=== PATIENT | male | born 2000 | race Caucasian/White ===

== ENCOUNTER → 2022-10-08 | Outpatient (CLI) | payer BC ==
--- NOTE | 2022-10-08 09:08 | Diagnostic Imaging Report ---
PROCEDURE: CT abdomen and pelvis with contrast. TECHNIQUE: Multiple contiguous axial images were obtained through the abdomen and pelvis after administration of intravenous contrast. Auto Exposure Controls were utilized during the CT exam to meet ALARA standards for radiation dose reduction. All CT scans use one or more of the following dose optimizing techniques: automated exposure control, MA and/or KvP adjustment based on patient size and exam type or iterative reconstruction. INDICATION: Abdominal pain with nausea, vomiting and diarrhea. No prior studies are available for comparison. FINDINGS: Lung bases are clear. Liver is unremarkable. Gallbladder appears to be thick-walled with possible pericholecystic fluid. There is no biliary ductal dilatation. Pancreas and spleen are unremarkable. No adrenal mass is identified. Kidneys are unremarkable. Aorta is nonaneurysmal. Bowel loops are nonobstructed. The appendix is unremarkable. No free fluid or fluid collection is seen. The bladder and prostate are unremarkable. IMPRESSION: Gallbladder appears to be thick-walled and there is some questionable pericholecystic fluid. Cholecystitis cannot be entirely excluded and gallbladder ultrasound would be useful for further evaluation. Dictated by: Dictated on workstation # [id number]
== END ==
LOC: RAD 07:45
PROVIDERS: ATTEND Physician Assistant
DX: K82.8 Other specified diseases of gallbladder (principal)
CPT/HCPCS: 74177

== ENCOUNTER 2022-10-22 05:36 | Outpatient (CLI) | payer BC ==
[~2022-10-22] VITALS: Ht 180.3 cm; Wt 88.2 kg
[2022-10-22] MEDS ORDERED: AMPH20TA2 PO (15:51)
[2022-10-24] MEDS ORDERED: ACHD5005 PO (10:52)
== END 2022-10-22 16:11 | disposition home or self-care (01) ==
LOC: PREOP 05:36
PROVIDERS: ATTEND Surgery
DX: Z01.818 Encounter for other preprocedural examination (principal)

== ENCOUNTER 2022-10-24 08:36 | Day surgery (SDC) | payer BC ==
[2022-10-24] VITALS (11 sets, daily range): BP systolic 102–137; BP diastolic 60–86
[~2022-10-24] VITALS: Ht 180.3 cm; Wt 88.2 kg
[~2022-10-24 08:36] MED LIST: AMPH20TA2 PO
[2022-10-24] MEDS ORDERED: LIDOCAINE/EPI 1%-1:100,000 (XYLOCAINE) 20ML ONE (08:43)
[2022-10-24] MEDS ORDERED: GLYCOPYRROLATE 0.2 MG/ML (ROBINUL) 2 ML VIAL ONE (09:15)
[2022-10-24] MEDS ORDERED: LIDOCAINE PF 2% 5 ML (XYLOCAINE) VIAL ONE (09:15)
[2022-10-24] MEDS ORDERED: ceFAZolin INJECTION 2,000 MG in NS (IVPB) 50 ML IV ONE (09:15)
[2022-10-24] MEDS ORDERED: ONDANSETRON 4 MG/2 ML (SDV) Z0FRAN ONE (09:15)
[2022-10-24] MEDS ORDERED: fentaNYL INJ 100 MCG/2 ML AMP ONE (09:15)
[2022-10-24] MEDS ORDERED: NEOSTIGMINE 3 MG/3 ML VIAL ONE (09:15)
[2022-10-24] MEDS ORDERED: MIDAZOLAM 2 MG/2 ML (VERSED) VIAL ONE (09:15)
[2022-10-24] MEDS ORDERED: proPOfol 200 MG/20 ML (DIPRIVAN) VIAL IV ONE (09:15)
--- NOTE | 2022-10-24 09:24 | Progress Note-Pre Operative ---
Pre-Operative Progress Note Date of Available H&P: Oct 18, 2022 Date H&P Reviewed: Oct 24, 2022 Time H&P Reviewed: 09:22 History & Physical: H&P Reviewed, Patient Examed, No changes noted Pre-Operative Diagnosis: Cholelithiasis/Cholecystitis JITENDRA BRAND DO Oct 24, 2022 09:24
[2022-10-24] MEDS: LACTATED RINGERS 1,000 ML IV PRN ×2 (09:35→10:25)
[2022-10-24] MEDS ORDERED: ATROPINE INJ 0.4 MG/ML SDV ONE (10:02)
[2022-10-24] MEDS ORDERED: ROCURONIUM 50 MG/5 ML (ZEMURON) VIAL IV ONE (10:23)
--- NOTE | 2022-10-24 10:48 | Anesthesia-General Post-Op ---
General Patient Condition Mental Status/LOC: Same as Preop Cardiovascular: Satisfactory Nausea/Vomiting: Absent Respiratory: Satisfactory Pain: Controlled Complications: Absent Post Op Complications Complications None Follow Up Care/Instructions Patient Instructions None needed. Anesthesia/Patient Condition Patient Condition Patient is doing well, no complaints, stable vital signs, no apparent adverse anesthesia problems. No complications reported per nursing. TOLU PADILLA CRNA Oct 24, 2022 10:48
--- NOTE | 2022-10-24 10:51 | Progress Note-Post Operative ---
Post-Operative Progess Note Surgeon (s)/Vinyl Flooring Installer (s) Surgeon JITENDRA BARND DO Vinyl Flooring Installer: Yudith Pre-Operative Diagnosis Cholelithiasis/Cholecystitis Post-Operative Diagnosis Same Procedure & Operative Findings Date of Procedure 10/24/22 Procedure Performed/Findings PROCEDURE: Laparoscopic cholecystectomy with intraoperative cholangiogram. COMPLICATIONS: None. PROCEDURE: The patient was taken to the operating suite and was prepped and draped in sterile fashion. A surgical pause was performed. Just superior to the umbilicus, a 12 mm incision was made. Dissection was taken down to the fascia, which was then scored and grasped with a Torey and the abdomen was then entered. A 0 Vicryl suture was placed in a [id number] fashion and a Son trocar was placed and secured. Pneumoperitoneum was achieved. A 5mm trochar place in the subxyphoid and 2 in the right upper quadrant. The gallbladder was visualized; it was very inflamed with thickened wall and very large. Able to grasp at the fundus and take in the superior direction. Had to take down adhesions to get to Roque's pouch and pull in the infero-lateral direction. The cystic duct, and cystic artery were then dissected out. Clip was placed on the distal portion of the cystic duct which was then partially transected. An arrow catheter was inserted into the duct. The cholangiogram was then performed. No filling defects and contrast made its way into the duodenum. Catheter removed. Clips were placed on proximal portion of the cystic duct and then the duct was then transected. Clips were placed along the proximal and distal portion of the cystic artery which was then transected. Hook cautery was used to dissect the gallbladder from the gallbladder fossa achieving hemostasis. The gallbladder was placed in an Endobag and attempted to remove through the 12 mm trocar site. Unable, had to open the incision more to get the gallbladder out. The abdomen was then reinspected. Copious amounts of irrigation were used to irrigate the abdomen and there were no signs of active bleeding. Hemostasis had been achieved. The fascial defect was then closed with a running 0 Vicryl suture. The abdomen was then desufflated, the trocars were removed. The abdomen was then washed and dried. The skin was then closed using 4-0 Monocryl in a subcuticular fashion. The abdomen was washed and dried and Skin Affix was place over incisions. Patient tolerated the procedure well without any complications and was taken to the recovery room in stable condition. Yudith assisted in this case helping to make incisions, close incisions, identify anatomy and hold anatomy out of the way. Anesthesia Type GET Estimated Blood Loss Estimated blood loss (mL): less than 10ml Specimens/Packing Specimens Removed GB and contents JITENDRA BRAND DO Oct 24, 2022 10:50
[2022-10-24] MEDS ORDERED: ACHD5005 PO (10:52)
--- NOTE | 2022-10-24 10:54 | Discharge Inst-Surgical ---
Discharge Inst-Surgical Depart Medication/Instructions New, Converted or Re-Newed RX: Transmitted to Pharmacy Patient Instructions Follow up Appt: Make appointment for 1 week. [phone] Instructions: No lifting greater than 20 pounds. No strenuous activity. May shower in 24 hours, no tub bath or soaking. Use incentive spirometer at home as directed. No Smoking Skin/Wound Care: May remove bandages in am. You need to leave the Dermabond on incision it will fall off on it's own. Symptoms to Report: Appetite Changes, Extremity Discoloration, Numbness/Tingling, Swelling Increased, Bleeding Excessive, Eyesight Changes, Pain Increased, Urine Color Change, Constipation(Persistent), Fever over 101 degree F, Pain/Pressure in chest, Urinating Difficulty, Cough Up/Vomit Blood, Heart Beat Irreg/Pounding, Pain/Pressure in jaw, Cramps in feet or legs, Lightheadedness, Pain/Pressure in shoulder, Diarrhea(Persistent), Memory Changes Suddenly, Questions/Concerns, Weight gain consecutive days, Dizziness/Fainting, Nausea/Vomiting, Shortness of Breath, Weight gain over 2 pounds If questions or concerns contact your physician Or seek help at emergency department. Activity Activity as Tolerated: Yes Activity Instructions: Avoid Pulling & Pushing Driving Instructions: No Driving/Refer to Diet Discharge Diet: Avoid Fatty Foods, Low Fat/Low Cholesterol Diet for 24 Hours: No [place] Foods Diet After 24 Hours: Clear Liquid if Nauseous If Any Problems/Questions/Issu: Contact Your Physician, Go to Emergency Room Skin/Wound Care Infection Signs and Symptoms: Increased Redness, Foul Odor of Wound, Increased Drainage, Skin Itchy or Has a Rash, Increased Swelling, Temperature Above 101 F Wound Care Comment: heating pad to shoulder or neck tonight for pain Bathing Instructions: Shower Stitches/[place]/Dermabond Dis: Dermabond Ice Pack: Ice On and Off Site JITENDRA BRAND DO Oct 24, 2022 10:54
[2022-10-24] MEDS ORDERED: ONDANSETRON 4 MG/2 ML (SDV) Z0FRAN IVP PRN (11:00)
[2022-10-24] MEDS ORDERED: fentaNYL INJ 100 MCG/2 ML AMP IVP ONE (11:00)
[2022-10-24] MEDS ORDERED: MEPERIDINE (DEMEROL) INJ 50 MG/ML IVP ONE (11:00)
[2022-10-24] MEDS ORDERED: morphine INJ 10 MG/ML 1ML (SYR OR VIAL) IVP ONE (11:00)
[2022-10-24] MEDS ORDERED: morphine INJ 10 MG/ML 1ML (SYR OR VIAL) ONE (11:08)
--- NOTE | 2022-10-24 11:53 | Diagnostic Imaging Report ---
INDICATION: Abdominal pain with nausea, vomiting, and diarrhea. COMPARISON: CT from 10/08/2022 Total fluoroscopy time: 15 seconds Total number fluoroscopic images saved: 85 FINDINGS: Multiple fluoroscopic and digital subtraction images of the right upper abdominal quadrant were obtained during intraoperative cholangiogram. Images provided show contrast opacifying the common hepatic and common bile ducts. No large intraluminal filling defects are seen. Please note, interpreting radiologist was not present during the procedure. IMPRESSION: 1. Fluoroscopic guidance provided during intraoperative cholangio-gram Dictated by: Dictated on workstation # [id number]
== END 2022-10-24 12:45 | disposition home or self-care (01) ==
LOC: SDC 08:36
PROVIDERS: ATTEND Surgery
DX: K80.10 Calculus of gallbladder with chronic cholecystitis without obstruction (principal)
CPT/HCPCS: 76000; 87081; 94664